=== PATIENT | male | born 1940 | race Caucasian/White ===

== ENCOUNTER 2016-09-04 04:51 | Inpatient (IN) | payer BC, MEDICARE ==
--- NOTE | ~2016-09-04 | DS ---
Discharge Summary [address] [id number] [facility] [place]. [address] NAME: PEG REINOSO : 39 STATUS : DIS IN PAT#: [id number] AGE: 76 ADM/REG DATE : 09/04/16 MR#: [id number] REPORT SERV DATE: 09/17/16 DICTATED BY: ARTHUR DONG DATE: 09/16/16 REPORT STATUS : Draft TRANSCRIBED BY: JODI DATE: 09/16/16 Data Collection from hospitalization DISCHARGE DIAGNOSES: 1. Sfh-WC-ldbbxvsgu myocardial infarction. 2. Ischemic cardiomyopathy. 3. Type 2 diabetes mellitus. 4. Acute kidney injury/chronic kidney disease. 5. Obstructive sleep apnea. 6. Transient ischemic attack. 7. Hypercholesterolemia. 8. Hypertension. 9. Neurogenic bladder. 10.Morbid obesity. 11.Hypercholesterolemia. CONSULTATIONS: 1. Pola Taylor M.D. 2. ROCK Rebolledo. PROCEDURES PERFORMED: Myocardial perfusion imaging study on 09/07/2016. DISCHARGE MEDICATIONS: Tylenol caplet 1000 mg every four hours as needed, vitamin C 1000 mg every morning, aspirin 81 mg every morning, Tenormin 25 mg every morning, Lipitor 20 mg at bedtime, vitamin D3 of 2400 units every morning, Plavix 75 mg every morning, vitamin D 50,000 units every 14 days, Zetia 10 mg at bedtime, Uloric 40 mg every morning, Tricor 145 mg every morning, Lasix 20 mg as instructed, NovoLog injection insulin 70/30 of 20 units subcutaneously every morning and 35 units subcutaneously at bedtime, Combivent one puff via inhaler four times a day as needed, Imdur 30 mg every morning, nitroglycerin 0.4 mg sublingually as needed, Nitro-Dur one patch topically daily, vitamin E 400 units every morning, Bonestine 1 tablet daily, [place] Q Plus two capsules every morning, montez fruit extract 3000 mg twice a day, Nattokinase 100 mg every morning, salmon oil 3 capsules 3 times a day, niacin 1 tablet three times a day, stool softener one capsule every morning, and antifungal cream one application topically every 48 hours. CONDITION AT DISCHARGE: Stable. DISPOSITION: The patient was discharged home on an 1800-calorie low-cholesterol, low-sodium, cardiac/diabetic diet with no concentrated carbohydrates and activities as instructed. He will follow up with Dr. Rober Krause 2 weeks following discharge in his [place] office and will follow up with Dr. Lizette Posey on 09/24/2016. He was to call the office of his primary care provider for a followup appointment as needed. HOSPITAL COURSE: This is a 76-year-old man who is followed by Dr. Jay and is known to me from a long history of prior care and has a history of coronary artery disease with surgical revascularization and subsequent percutaneous coronary interventions. He also has ischemic cardiomyopathy February 2016, left ventricular ejection fraction of 40%. 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 [address] NAME: PEG REINOSO : 39 STATUS : DIS IN PAT#: [id number] AGE: 76 ADM/REG DATE : 09/04/16 MR#: [id number] REPORT SERV DATE: 09/17/16 DICTATED BY: ARTHUR DONG DATE: 09/16/16 REPORT STATUS : Draft TRANSCRIBED BY: JODI DATE: 09/16/16 disease, remote, GONZALO stent, and recent TIA requiring hospitalization first at [facility], was transfers at [place] for evaluation there. He was found to have right internal carotid artery stent and subsequent diagnosis of hemodynamics TIA. He also has a history of sleep apnea, hypertension, neurogenic bladder. He had been discharged from [place] on the day prior to this admission, and belatedly reported an episode of exertional chest pain while undergoing physical therapy. He told this to the physical therapist, but somehow the communication was lost. On the way home in his automobile while riding, he developed chest pains, but this subsided spontaneously within 15 minute. Upon climbing 3 stairs to his home, he developed recurrent chest pain which was only partially responsive to self administration of nitroglycerin. EMS was called and more nitroglycerin and other medications were administered. Blood pressure was 160 systolic. He did receive clonidine. He presented to the emergency room at [facility] where he was pain free. An EKG was nondiagnostic. Troponin was positive. He was transferred to [facility], and has remained pain-free here. He was felt to have had a oqk-YE-xjjqimzph myocardial infarction. It was unclear whether this was precipitated by hypertension. His troponin was found to be 15.8. DAPT was continued. Heparin was added. It was felt that he would need to undergo myocardial perfusion imaging or cardiac catheterization. He was seen by Dr. Pola Taylor regarding management of diabetes. The patient was going to be continued on his 70/30 insulin. As per his home regimen, sliding scale insulin would be used. His other home medications would be continued. An echocardiogram was performed the following day. His shortness of breath was stable. Levemir and NovoLog were continued. Urinalysis was going to be checked. He was encouraged to use CPAP. Altace was stopped. Catapres was held. He had no chest pain. His speech was a bit slurred. Left ventricular ejection fraction was 35%. Catapres was held as well as MAYTE inhibitor. He was seen by Evelyn Rivero regarding acute kidney injury. His baseline creatinine is 1.6 to 1.9. Creatinine had jumped to 2.3. Blood pressures were still dropping. Clonidine had been discontinued. A Ulloa catheter was then placed with excellent urine output. Troponin level was now 8.25. Creatinine level was 2.37. He was felt to have acute kidney injury on chronic kidney disease in the setting of low blood pressure and ftl-LJ-mhkceckmm myocardial infarction. It was suspected that creatinine was up in the setting of his low blood pressure. MAYTE inhibitor and clonidine has been held. He had excellent urine output. Ulloa catheter remained in place. He wanted to see the patient's creatinine below 2 before any contrast studies. On the , he seemed to be feeling better. He had no shortness of breath or chest pain. Creatinine level was 2.81. Lasix was held. He had no chest pain. He was in a sinus rhythm. A myocardial perfusion imaging study was going to be performed. The next day, creatinine level decreased slightly to 2.65. He had a normal respiratory effort. He had good pain control. Myocardial perfusion imaging study was performed. Levemir was adjusted. Imaging demonstrated ischemia. Post infusion left ventricular ejection fraction was 35%. On 09/08/2016, his shortness of breath was at baseline. He had no chest pain. He was in a sinus rhythm. Medical therapy continued for now. Crestor was going to be started. Creatinine level was now 2.32. It was felt that he should not undergo coronary angiogram until creatinine level was less than 2. He was evaluated by Physical Therapy. He had no new complaints. Medical therapy continued and LifeVest was going to be placed. Discharge planning was performed. Blood sugars remained stable. He had good urine output. On 09/10/2016, he was ambulating without chest pain. He remained in a sinus rhythm. DAPT continued. Life Vest was in place. He was going to go home. Creatinine was 2.39. Discharge Summary [address] [address] NAME: PEG REINOSO : 39 STATUS : DIS IN PAT#: [id number] AGE: 76 ADM/REG DATE : 09/04/16 MR#: [id number] REPORT SERV DATE: 09/17/16 DICTATED BY: ARTHUR DONG DATE: 09/16/16 REPORT STATUS : Draft TRANSCRIBED BY: MODL DATE: 09/16/16 Discharge instructions were given. Due to his improved and stable condition, he was discharged home with the above-stated instructions. Information collected by: Elena Bunch I submit the above information as my discharge summary. GLENDA/JODI Arthur Dong M.D. / [id number] CC: Tay Diaz M.D. Jessica Craig, FNP
--- NOTE | ~2016-09-04 | HP ---
History And Physical [id number] [place]. [address] NAME: PEG REINOSO : 39 STATUS : ADM IN [facility]#: [id number] AGE: 76 ADM/REG DATE : 09/04/16 MR#: [id number] REPORT SERV DATE: 09/04/16 DICTATED BY: NOAM DONG DATE: 09/04/16 REPORT STATUS : Draft TRANSCRIBED BY: MODAlicia DATE: 09/04/16 DATE OF ADMISSION: 09/04/2016 CHIEF COMPLAINT: Chest pain. HISTORY OF PRESENT ILLNESS: A 76-year-old man, followed by Dr. Jay, known to me from long history of prior care, has history of coronary artery disease with surgical revascularization, 06/16 and subsequent PCIs, ischemic cardiomyopathy with 02/24, LVEF 40%, chronic kidney disease, class 3-4, insulin-requiring diabetes, hypercholesteremia, carotid disease with remote GONZALO stent and recent TIA requiring hospitalization at first to [facility] with transfer to [place] with evaluation there, demonstrating patent GONZALO stent and subsequent diagnosis of hemodynamic TIA. The patient also has a relevant history of sleep apnea, hypertension, neurogenic bladder. He was discharged from [place] yesterday afternoon and belatedly reports an episode of exertional chest pain while undergoing physical therapy. He told this to the physical therapist, but apparently this was not communicated or somehow was lost. On the way home in automobile while riding, he had chest pain. This subsided spontaneously within 15 minutes. Upon ascending 3 steps to his home, he had recurrent chest pain, which was only partially responsive to self administration of nitroglycerin. EMS was summoned and more nitroglycerin and other medications were administered. Blood pressure was 160 systolic. He received clonidine. Chest pain finally subsided. He presented to the emergency room at [facility], where he was pain-free. An EKG was nondiagnostic. Troponin was positive. He has been received and transfer to [facility] and has remained pain-free here. PAST MEDICAL HISTORY: 1. CAD-06/16, CABG with MOYER to LAD, SVG to diagonal with endarterectomy, SVG sequentially to proximal and then distal obtuse marginal vessel; 07/21 cath with occluded CABG to OM, 80% AV groove circumflex with distal RCA 90% stenosis, then treated with 2.5 x 12 Xience; 07/21, 2.25 x 16 MACARIO to mid ramus, and 2.5 x 28 Xience to proximal ramus, 3.0 x 15 Xience to AV groove circumflex, and 2.5 x 8 Xience to ostium of ramus; 09/20, angina with balloon PCI of ostial ramus intermedius vessel stenosis and ostial AV groove circumflex 2.5 x 20 PROMUS; 10/21 balloon PCI of right posterior descending stenosis (could not deliver stent); 09/22 proximal AV groove circumflex 90%, treated with 3.5 x 8 Xience and occluded SVG x2; ischemic cardiomyopathy-10/25 LVEF 30% with LifeVest placed then and optimization of medical therapy with 02/24, echocardiogram estimating LVEF 40%. 2. CKD-class 3-4. 3. Type 2 but insulin-requiring diabetes. 4. Hypercholesterolemia. 5. Morbid obesity. 6. Hypertension. 7. Sleep apnea. 8. Carotid disease-11/20, GONZALO asymptomatic critical stenosis treated with 8 x 30 Xact stent; 09/24 duplex with patent GONZALO stent; admission to [facility] 08/28 with dysarthria and possibly anomia, an MRA suggestion of in-stent restenoses; transfer to [place], History And Physical [address] [address] NAME: PEG REINOSO : 39 STATUS : ADM IN [facility]#: [id number] AGE: 76 ADM/REG DATE : 09/04/16 MR#: [id number] REPORT SERV DATE: 09/04/16 DICTATED BY: NOAM DONG DATE: 09/04/16 REPORT STATUS : Draft TRANSCRIBED BY: MODAlicia DATE: 09/04/16 where duplex demonstrates widely patent GONZALO stent and MRI/MRA, no critical intracranial cerebral stenoses. 9. Neurogenic bladder. MEDICATIONS: Acetaminophen 1 g q.4 hours p.r.n., vitamin C 500 mg daily, aspirin 81 mg daily, atenolol 50 mg daily, cholecalciferol 2400 units daily, clonidine 0.1 mg b.i.d., Plavix 75 mg daily, vitamin D 17571 units every other Wednesday, Zetia 10 mg daily, Uloric 40 mg daily, fenofibrate 145 mg daily, Lasix 20 mg daily, gabapentin 100 mg daily, hydralazine 50 mg t.i.d., insulin corrected dosing, ipratropium/albuterol, isosorbide mononitrate 30 mg daily, nitroglycerin 0.4 mg sublingual p.r.n., Nitro-Dur 0.4 mg/h daily, ramipril 10 mg daily, vitamin E 400 units daily, [place] plus montez fruit extract, antifungal creams. ALLERGIES: SULFA. SOCIAL HISTORY: The patient is a [place] of [place]. He has been in this area for some time. He is . He does not smoke. FAMILY HISTORY: Noncontributory. REVIEW OF SYSTEMS: Neurogenic bladder and peripheral neuropathy with impaired gait. PHYSICAL EXAMINATION: GENERAL: No acute distress. VITAL SIGNS: Blood pressure 141/65, respirations 18, temperature 96.9, pulse 61 and regular. NECK: Bilateral carotid bruits, no JVD. LUNGS: Clear. CARDIAC: II/ systolic murmur, no diastolic murmur, no gallop. ABDOMEN: Obese. EXTREMITIES: +1/4 bilateral pretibial pitting edema. Right and left femoral pulses +2. DATA: BUN and creatinine 50 and 1.95 yielding EGFR 37. White blood cell count 4700, hematocrit 38.8%, platelet count 137,000. Troponin I 15.8. EKG sinus rhythm at a rate of 63, first-degree AV block, left bundle branch block (trifascicular block.) ASSESSMENT AND PLAN: 1. Nlu-JL-vfumafwiw myocardial infarction-unclear whether this was precipitated by hypertension, which was recommended and mandated by neurologists to improve cerebral perfusion (theoretically). Alternatively, this may represent unstable coronary lesion. The patient is now pain-free. We will continue DAPT. We will add heparin. We will observe over weekend and decide whether risk stratification with myocardial perfusion imaging or cardiac catheterization will be optimal. Contrast administration is problematic for this patient. History And Physical [address] [place]. [address] NAME: PEG REINOSO : 39 STATUS : ADM IN [facility]#: [id number] AGE: 76 ADM/REG DATE : 09/04/16 MR#: [id number] REPORT SERV DATE: 09/04/16 DICTATED BY: NOAM DONG DATE: 09/04/16 REPORT STATUS : Draft TRANSCRIBED BY: MODL DATE: 09/04/16 2. Ischemic cardiomyopathy-obtain echocardiogram today. Continue current therapy with blood pressure target of 120. 3. Diabetes mellitus 2-consult hospitalist. 4. Chronic kidney disease-now class 3. 5. Obesity. 6. Sleep apnea. 7. Transient ischemic attack. 8. Carotid disease-remote GONZALO stent which is widely patent by duplex. /MODL Noam Dong M.D. / [id number] CC: Tay Diaz M.D.
--- NOTE | ~2016-09-04 | CN ---
Consultation Report [facility] [address] [place]. [address] NAME: PEG REINOSO : 39 STATUS : ADM IN [facility]#: [id number] AGE: 76 ADM/REG DATE : 09/04/16 MR#: [id number] REPORT SERV DATE: 09/07/16 DICTATED BY: POLA TAYLOR DATE: 09/04/16 REPORT STATUS : Draft TRANSCRIBED BY: MODAlicia DATE: 09/04/16 CONSULTATION DATE OF CONSULTATION: REASON FOR CONSULTATION: Management of diabetes. BRIEF HISTORY OF PRESENT ILLNESS: The patient is a 76-year-old white male, recently discharged from under my service to [facility] for evaluation and management of what appeared to be a critical stenosis. This patient was at [facility] and discharged yesterday. When he got home, he was having some chest pain. He took one nitroglycerin that seemed to subside. Then, he had to take three nitros, pain did not go away. He became very diaphoretic. He had some nausea. So, activated EMS. He was brought to [facility]. He was noted to have an elevated troponin. So, he has been transferred here for further care under Dr. Dong, who is his primary applications analyst. I was asked to see the patient in consultation for management of his diabetes. This patient reports no chest pain at this time. REVIEW OF SYSTEMS: A 12-point review of systems otherwise was negative. PAST MEDICAL HISTORY: Coronary artery disease, status post stent placement with Dr. Dong; history of CABG in 2006; subsequent heart catheterization showed an occluded vein graft; carotid artery disease with a stent placement approximately three years ago with recent evaluation at [place] showing no further carotid artery occlusions. Systolic congestive heart failure with an ejection fraction of 30% in October 2015; obstructive sleep apnea, on CPAP. Chronic kidney disease stage 3 to 4, follow by Dr. Ted Stiles. He has chronic left bundle-branch block. He has neurogenic bladder with self catheterization three times daily, followed by Dr. Vanessa. He has hypertension. He has type 2 diabetes mellitus with neuropathy. He has hyperlipidemia. He is vitamin D deficiency. PAST SURGICAL HISTORY: Significant for CABG in 2006, left hip surgery, lumbar spine surgery, right finger surgery. ALLERGIES: TO SULFA DRUGS. HOME MEDICATIONS: Tylenol 100 mg every four hours p.r.n., vitamin C 1000 mg p.o. daily, aspirin 81 mg once daily, Tenormin 50 mg once daily, vitamin D3 2400 units once every morning, Catapres 0.1 mg twice daily, Plavix 75 mg once every morning, vitamin D 5000 units once every 14 days, Zetia 10 mg once at bedtime, Uloric 40 mg p.o. every morning, TriCor 145 mg p.o. every morning, Lasix 20 mg once every morning, gabapentin 100 mg daily, hydralazine 50 mg three times daily, NovoLog 70/30, FlexPen 20 units subcu in the morning and 40 units subcu at bedtime, Combivent Respimat 1 puff four times daily p.r.n., isosorbide 30 mg once every morning, NitroQuick 0.4 sublingual p.r.n. for chest pain, and Nitro-Dur patch 0.4 mg Consultation Report [address] [address] NAME: PEG REINOSO : 39 STATUS : ADM IN PAT#: [id number] AGE: 76 ADM/REG DATE : 09/04/16 MR#: [id number] REPORT SERV DATE: 09/07/16 DICTATED BY: POLA TAYLOR DATE: 09/04/16 REPORT STATUS : Draft TRANSCRIBED BY: JDOI DATE: 09/04/16 per hour once daily, ramipril 10 mg every morning, vitamin E 400 mg p.o. every morning, Bonestine one tablet p.o. daily, [place] Q Plus two caplets p.o. daily, montez fruit extract, nattokinase 100 mg p.o. once every morning taking full of blood clots, [place] oil, niacin, stool softener, and antifungal cream for toenail fungus. SOCIAL HISTORY: This patient quit smoking 40 years ago. No use of alcohol. He is , lives with his in [place], [place]. He ambulates using a walker. FAMILY HISTORY: Mother at 62 of age, complications of congestive heart failure and diabetes. Two brothers with heart disease. PHYSICAL EXAMINATION: GENERAL: White male, lying on the bed, appears to be in no obvious respiratory distress. He is awake, alert. He is oriented. VITAL SIGNS: Blood pressure 143/66, pulse is 63, temp is 97.0, saturation of 99% on 2 L of nasal cannula. HEENT: Head is normocephalic, atraumatic. Pupils are equal, round, and reactive to light. Extraocular muscles are intact. Sclerae anicteric. Conjunctivae normal. Oropharynx without lesion. Tongue protrusion midline. Uvula midline. NECK: Supple. No jugular venous distention. No carotid bruits or thyromegaly is appreciated. No lymphadenopathy in the neck is palpable. HEART: Regular rate and rhythm. No murmurs, rubs, or gallops are heard. PMI nondisplaced. LUNGS: Clear to auscultation both anteriorly and posteriorly without rales, rhonchi, wheezing, or consolidation. ABDOMEN: Obese, soft, nontender. Good bowel sounds. No rebound or guarding. No organomegaly. EXTREMITIES: Without cyanosis or clubbing. Trace edema in the ankle areas is noted. NEUROLOGICAL: Typical sensory neuronal loss is noted from diabetic neuropathy in both lower extremities. Otherwise neurological exam is completely normal. LABS: Sodium 138, potassium 4.0, chloride 104, bicarb 24, BUN 50, creatinine 1.95, glucose of 152, calcium is 9.6. Troponin is 15.80, a one this morning is 14.6. White count is 4.7, hemoglobin 13.3, hematocrit of 38.8, platelet count is 137,000. No left shift. PT 15, INR 1.4, PTT 58. Two-dimensional echocardiogram, pending. EKG, sinus rhythm with first-degree AV block. Left axis deviation and left bundle-branch block. No acute ST-T wave changes. IMPRESSION: 1. Type 2 diabetes mellitus. 2. History of coronary artery disease, now presenting with non ST-elevation myocardial infarction. 3. Peripheral arterial disease with a prior carotid stent with recent carotid evaluation being negative. 4. Obstructive sleep apnea. 5. Systolic heart failure. 6. Chronic kidney disease stage 3 to 4. Consultation Report [address] [place]. [address] NAME: PEG REINOSO : 39 STATUS : ADM IN [facility]#: [id number] AGE: 76 ADM/REG DATE : 09/04/16 MR#: [id number] REPORT SERV DATE: 09/07/16 DICTATED BY: POLA TAYLOR DATE: 09/04/16 REPORT STATUS : Draft TRANSCRIBED BY: JDOI DATE: 09/04/16 7. Diabetic neuropathy. PLAN: The patient will be continued on his 70/30 insulin per home regimen. Sliding scale will be used. Continue other home medications. Cardiac management will be deferred to Dr. Dong. Hospitalist Service will follow. We thank you for this consultation. GERRI/JODI Pola Taylor M.D. / [id number] CC: Tay Diaz M.D.
--- NOTE | ~2016-09-04 | ECH ---
Echocardiogram [address] [place]. [address] NAME: PEG REINOSO : 39 STATUS : ADM IN PAT#: [id number] AGE: 76 ADM/REG DATE : 09/04/16 MR#: [id number] REPORT SERV DATE: 09/07/16 DICTATED BY: ARTHUR DONG DATE: 09/04/16 REPORT STATUS : Draft TRANSCRIBED BY: MODL DATE: 09/04/16 ORDERING: Arthur Dong M.D. INDICATIONS: Evaluation of LVEF after a non-ST elevation ME. STUDY QUALITY: Fair. MEASUREMENTS (in cm) Aortic Root = 2.9. Septal Wall = Posterior Wall = LV Diastolic = LV Systolic = Left Atrium = IVS: 1.2. LV POSTERIOR WALL: 1.2. LVIDD: 5.9. LVIDS: 4.9. LA: 4.4. LVEF: By Lawson's method 35% (may differ from visual estimation of LVEF). 2D DOPPLER: 1. Aortic Valve: Trileaflet with normal excursion. 2. Aortic Root: Normal. 3. Mitral Valve: Morphologically normal without prolapse. 4. Tricuspid Valve: Morphologically normal without prolapse. 5. Pulmonic Valve: Grossly normal. 6. Left Ventricle: Global hypocontractility with disproportionate posterolateral wall hypokinesis. Ejection fraction is estimated to be in the range of 30% to 35%. 7. Right Ventricle: Normal. 8. Pericardial Space: Trace pericardial fluid identified . 9. Intracardiac Masses: None. 10.Other: None. FINAL IMPRESSION: 1. Mild concentric left ventricular hypertrophy. 2. Minimally dilated left ventricular at end diastole. 3. Moderately dilated left ventricular at end systole. 4. Mildly decreased left ventricular ejection fraction estimated 30% to 35% with segmental wall motion abnormalities described. 5. Trace pericardial fluid without tamponade physiology. 6. Limited study and valvular function not evaluated. Echocardiogram [address] [place]. [address] NAME: PEG REINOSO : 39 STATUS : ADM IN PAT#: [id number] AGE: 76 ADM/REG DATE : 09/04/16 MR#: [id number] REPORT SERV DATE: 09/07/16 DICTATED BY: ARTHUR DONG DATE: 09/04/16 REPORT STATUS : Draft TRANSCRIBED BY: MODL DATE: 09/04/16 /MODL Arthur Dong M.D. / [id number] CC: Tay Diaz M.D.
--- NOTE | ~2016-09-04 | CN ---
Consultation Report [facility] [address] [place]. [address] NAME: PEG MEADOWS : 38 STATUS : ADM IN [facility]#: [id number] AGE: 76 ADM/REG DATE : 09/04/16 MR#: [id number] REPORT SERV DATE: 09/06/16 DICTATED BY: DATE: REPORT STATUS : Draft TRANSCRIBED BY: MODL DATE: 09/05/16 CONSULTATION REPORT DATE OF CONSULTATION: REASON FOR CONSULTATION: Acute kidney injury. HISTORY OF PRESENT ILLNESS: Mr. 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 Stiles. As best I can tell from [facility] records, his baseline creatinine is 1.6 to 1.9. Apparently, he was in the hospital a week or so ago with TIA, transferred from [facility] to [place]. He had significant high blood pressure and medicines were adjusted. He was doing some physical therapy, developed chest pain, and brought to the emergency department. He has had a [id number] ND with significant troponin elevation. Since he has been here, had blood pressures in the 70 to 90 range, creatinine has bumped up to 2.3, and we have been asked to see him in consultation as there is consideration for possible heart catheterization early next week as well. He is currently still experiencing some shortness of breath. Blood pressures are still dropping. He is having some dysarthria here in there, and the states that this is not unusual when he takes clonidine, this was just discontinued. His last dose of Altace was yesterday as well as clonidine. Current blood pressure is at 105. Denies any dysuria or hematuria. He has a Ulloa catheter in place with excellent urine output. PAST MEDICAL HISTORY: CKD, stage III to IV; diabetes with neuropathy; neurogenic bladder; diabetes; hyperlipidemia; coronary artery disease, status post PCI and bypass. He has also had a right carotid endarterectomy, TIA recently, obstructive sleep apnea, and hypertension. SOCIAL HISTORY: He is . No tobacco, alcohol, or illicit drug use. FAMILY MEDICAL HISTORY: Negative for kidney disease. ALLERGIES: SULFA. MEDICATIONS: At the time of consultation; vitamin C, aspirin, Tenormin, Imdur, Neurontin, Lasix, Uloric, Zetia, and Plavix. REVIEW OF SYSTEMS: A 12-point review of systems was obtained and negative with the exception of that in the HPI. PHYSICAL EXAMINATION: VITAL SIGNS: Temp 97, blood pressure is 103/51, pulse 57, respiratory rate 16, and O2 saturation is 95%. GENERAL: This is a pleasant, cooperative white male. He is awake, alert, and oriented. Speech is a bit slurred. Consultation Report [address] [place]. [address] NAME: PEG MEADOWS : 38 STATUS : ADM IN PAT#: [id number] AGE: 76 ADM/REG DATE : 09/04/16 MR#: [id number] REPORT SERV DATE: 09/06/16 DICTATED BY: DATE: REPORT STATUS : Draft TRANSCRIBED BY: JODI DATE: 09/05/16 HEENT: Normocephalic and atraumatic. Conjunctivae are clear. Sclerae are anicteric. Pupils are equal and round. Oral mucosa is moist. NECK: Supple and with carotid bruits bilaterally. HEART: His heart rate is regular. Heart tones are very distant, hard for me to here. I really cannot hear any murmur, rub, or gallop. ABDOMEN: Obese, soft, and nontender. Bowel sounds are active. No masses. No hepatosplenomegaly. No bruits. No CVA tenderness. BACK: Within normal limits. EXTREMITIES: Without any significant edema, cyanosis, or clubbing. SKIN: Warm, dry, and intact. No unusual rashes or skin lesions. NEURO: No focal deficits. Mood and affect, pleasant and appropriate. PERTINENT LABS AND X-RAYS: He had a UA without any significant protein or blood. Sodium 136, potassium 4.5, chloride 101, CO2 of 20, BUN 52, creatinine 2.37, calcium 8.8, phosphorus 3.9, and albumin of 3.2. Troponin is 8.25. WBC is 4.9, H and H 12 and 36, and platelets 138,000. IMPRESSION: 1. Acute kidney injury. 2. Chronic kidney disease, stage III to IV. 3. Lgq-HB-gisoqjaoe myocardial infarction. 4. Hypotension. 5. Recent transient ischemic attack. 6. Ischemic cardiomyopathy with ejection fraction of 35%. 7. Neurogenic bladder with Ulloa in place. PLAN/RECOMMENDATION: Acute kidney injury on CKD in setting of low blood pressure, non-ST- elevation ND. Suspect creatinine is up in the setting of his low blood pressure. MAYTE inhibitor and clonidine have already been held. He has excellent urine output. He has a Ulloa catheter in place. We will follow up on labs, I's and O's, and follow along with you. I would like to see his creatinine below 2 before any contrasted studies. Thank you for the consultation. VALENTINA ROCK Rebolledo / [id number] CC: Arthur Dong M.D. Consultation Report [address] [place]. [address] NAME: PEG MEADOWS : 38 STATUS : ADM IN PAT#: [id number] AGE: 76 ADM/REG DATE : 09/04/16 MR#: [id number] REPORT SERV DATE: 09/06/16 DICTATED BY: DATE: REPORT STATUS : Draft TRANSCRIBED BY: JODI DATE: 09/05/16 Barrett Jay M.D.
[~2016-09-04 04:51] MED LIST: ACET500CAP PO; ALTA5 PO; ALTACE10 MG PO; ANTIFUNGAL CREAM TOP; APRES25 PO; APRES50 PO; AQUASOL E50 UNT/ML PO; ASA5GR PO; ASAB PO; ATEN25 PO; ATEN50 PO; AVODART PO; B-125000 MCG SL; CAT1 PO; CHERRY FRUIT EXTRACT PO; CINNAMON PO; COMBIVENT RESPIM4 GM INH; CRESTOR40 MG PO; FISH-EPA1000 MG PO; IMDUR30 PO; INSNOV7030 SC; KLOR-CON M2020 MEQ PO; L20 PO; L40 PO; MULTIVITAMI1 PO; NAC 600 PO; NAC PO; NATTOKINASE PO; NEUR100 PO; NIACIN PO; NITROII20C TOP; NITROQUICK0.4 MG PO; NITROSTAT0.4 MG SL; NOVOLOGMIX SC; NOVOPENMIX SC; OMEGA Q PLUS PO; PLAVIX PO; SALMON OIL PO; STOOL SOFTENER PO; T PO; TRICOR145 PO; ULORIC40 MG PO; VITAMIN C100 MG PO; VITAMIN D2000 UNIT PO; VITAMIN D31000 UNIT PO; VITC500 PO; VITD PO; VITE PO; ZETIA PO; [UNRECOGNIZED DRUG - OTHER] PO
[2016-09-04 06:12] LABS: BASOPHILS 1.1 %; BASOPHILS ABSOLUTE 0.05 10/3/uL (0.0-0.16); EOSINOPHILS 6.2 %; EOSINOPHILS ABSOLUTE 0.29 10/3/uL (0.0-0.53); HEMATOCRIT 38.8 % (40.0-51.0); HEMOGLOBIN 13.3 g/dL (13.6-17.8); LYMPHOCYTES 29.7 %; LYMPHOCYTES ABSOLUTE 1.38 10/3/uL (0.67-4.30); MEAN CORPUS HGB CONC 34.3 g/dL (32.0-36.0); MEAN CORPUSCULAR HEMOGLOB 32.3 pg (26.0-34.0); MEAN CORPUSCULAR VOLUME 94.2 fL (80-100); MEAN PLATELET VOLUME 9.5 fL (9.2-13.0); MONOCYTES 10.5 %; MONOCYTES ABSOLUTE 0.49 10/3/uL (0.21-1.20); NEUTROPHILS 52.5 %; NEUTROPHILS ABSOLUTE 2.44 10/3/uL (2.02-8.40); PLATELET COUNT 137 10/3/uL (150-400); RED CELL COUNT 4.12 10/6/uL (4.7-6.1); WHITE BLOOD CELLS 4.7 10/3/uL (4.5-10.5)
[2016-09-04 06:13] LABS: MANUAL DIFF NO %
[2016-09-04 06:18] LABS: INTERNATIONAL NORMAL RATI 1.2 UNITS (-)
[2016-09-04 06:19] LABS: PARTIAL THROMBO TIME 58.6 SEC (22.5-37.2)
[2016-09-04 06:41] LABS: CALCIUM, SERUM 9.6 MG/DL (8.5-10.4); CHLORIDE, SERUM 104 MMOL/L (96-112); CO2 (CARBON DIOXIDE) 24 MMOL/L (24-34); CREATININE 1.95 MG/DL (0.70-1.30); GFR AFRICAN AMERICAN 37 ML/MIN (>=60); GFR NON AFRICAN AMERICAN 32 ML/MIN (>=60); SODIUM, SERUM 138 MMOL/L (135-148)
[2016-09-04 06:42] LABS: BUN (BLOOD UREA NITROGEN) 50 MG/DL (6-23); GLUCOSE, SERUM 152 MG/DL (60-99)
[2016-09-05 00:28] LABS: BASOPHILS ABSOLUTE 0.05 10/3/uL (0.0-0.16); EOSINOPHILS 6.1 %; HEMATOCRIT 36.3 % (40.0-51.0); HEMOGLOBIN 12.6 g/dL (13.6-17.8); IMMATURE GRANULOCYTES 0.4 %; IMMATURE GRANULOCYTES ABSOLUTE 0.02 10/3/uL (0.0-0.11); LYMPHOCYTES 21.3 %; LYMPHOCYTES ABSOLUTE 1.04 10/3/uL (0.67-4.30); MEAN CORPUS HGB CONC 34.7 g/dL (32.0-36.0); MONOCYTES 14.8 %; MONOCYTES ABSOLUTE 0.72 10/3/uL (0.21-1.20); NEUTROPHILS 56.4 %; NEUTROPHILS ABSOLUTE 2.75 10/3/uL (2.02-8.40); PLATELET COUNT 138 10/3/uL (150-400); RBC DISTRIBUTION WIDTH 14.1 % (12.0-16.0); RED CELL COUNT 3.82 10/6/uL (4.7-6.1); WHITE BLOOD CELLS 4.9 10/3/uL (4.5-10.5)
[2016-09-05 00:32] LABS: MANUAL DIFF NO %
[2016-09-05 00:44] LABS: ALBUMIN 3.2 G/DL (3.5-5.0); BUN (BLOOD UREA NITROGEN) 52 MG/DL (6-23); CALCIUM, SERUM 8.8 MG/DL (8.5-10.4); CHLORIDE, SERUM 101 MMOL/L (96-112); CO2 (CARBON DIOXIDE) 22 MMOL/L (24-34); CREATININE 2.37 MG/DL (0.70-1.30); GFR AFRICAN AMERICAN 30 ML/MIN (>=60); GFR NON AFRICAN AMERICAN 25 ML/MIN (>=60); GLUCOSE, SERUM 180 MG/DL (60-99); PHOSPHORUS, SERUM 3.8 MG/DL (2.5-4.5); POTASSIUM, SERUM 4.5 MMOL/L (3.5-5.3); SODIUM, SERUM 136 MMOL/L (135-148)
[2016-09-05 00:46] LABS: TROPONIN I 8.25 NG/ML (<0.05)
[2016-09-05 15:38] LABS: ASCORBIC ACID (UR NOT ORDER) 40 (NEG); BILIRUBIN, URINE NEGATIVE (NEG); KETONE, URINE NEGATIVE (NEG); LEUKOCYTE ESTERASE(NOT OR TRACE (NEG); WBC (NOT ORDERED) (RFLEX) 2 (0-5)
[2016-09-06 02:28] LABS: BASOPHILS 0.7 %; BASOPHILS ABSOLUTE 0.03 10/3/uL (0.0-0.16); EOSINOPHILS 7.2 %; EOSINOPHILS ABSOLUTE 0.31 10/3/uL (0.0-0.53); HEMATOCRIT 36.5 % (40.0-51.0); HEMOGLOBIN 12.6 g/dL (13.6-17.8); IMMATURE GRANULOCYTES 0.2 %; IMMATURE GRANULOCYTES ABSOLUTE 0.01 10/3/uL (0.0-0.11); LYMPHOCYTES 25.2 %; LYMPHOCYTES ABSOLUTE 1.09 10/3/uL (0.67-4.30); MEAN CORPUS HGB CONC 34.5 g/dL (32.0-36.0); MEAN CORPUSCULAR HEMOGLOB 32.6 pg (26.0-34.0); MEAN CORPUSCULAR VOLUME 94.6 fL (80-100); MEAN PLATELET VOLUME 9.3 fL (9.2-13.0); MONOCYTES 17.6 %; MONOCYTES ABSOLUTE 0.76 10/3/uL (0.21-1.20); NEUTROPHILS 49.1 %; NEUTROPHILS ABSOLUTE 2.12 10/3/uL (2.02-8.40); PLATELET COUNT 135 10/3/uL (150-400); RBC DISTRIBUTION WIDTH 14.2 % (12.0-16.0); RED CELL COUNT 3.86 10/6/uL (4.7-6.1); WHITE BLOOD CELLS 4.3 10/3/uL (4.5-10.5)
[2016-09-06 02:37] LABS: MANUAL DIFF NO %
[2016-09-06 02:52] LABS: A/G RATIO 0.9 (0.7-1.9); ALBUMIN 3.2 G/DL (3.5-5.0); CALCIUM, SERUM 8.9 MG/DL (8.5-10.4); CHLORIDE, SERUM 101 MMOL/L (96-112); CO2 (CARBON DIOXIDE) 22 MMOL/L (24-34); CREATININE 2.81 MG/DL (0.70-1.30); GFR AFRICAN AMERICAN 24 ML/MIN (>=60); GFR NON AFRICAN AMERICAN 21 ML/MIN (>=60); GLOBULIN 3.4 G/DL (2.5-4.1); POTASSIUM, SERUM 4.8 MMOL/L (3.5-5.3); SGOT(AST) 33 U/L (5-40); SGPT(ALT) 25 U/L (5-65); SODIUM, SERUM 133 MMOL/L (135-148); TOTAL BILIRUBIN 0.3 MG/DL (0-1.2); TOTAL PROTEIN 6.6 G/DL (6.0-8.5)
[2016-09-06 02:53] LABS: ALKALINE PHOSPHATASE 44 U/L (45-117); BUN (BLOOD UREA NITROGEN) 60 MG/DL (6-23); GLUCOSE, SERUM 139 MG/DL (60-99); PHOSPHORUS, SERUM 4.9 MG/DL (2.5-4.5)
[2016-09-07 04:00] LABS: ALBUMIN 3.5 G/DL (3.5-5.0); BUN (BLOOD UREA NITROGEN) 62 MG/DL (6-23); CALCIUM, SERUM 9.6 MG/DL (8.5-10.4); CHLORIDE, SERUM 103 MMOL/L (96-112); CO2 (CARBON DIOXIDE) 23 MMOL/L (24-34); CREATININE 2.65 MG/DL (0.70-1.30); GFR AFRICAN AMERICAN 26 ML/MIN (>=60); GFR NON AFRICAN AMERICAN 22 ML/MIN (>=60); GLUCOSE, SERUM 141 MG/DL (60-99); PHOSPHORUS, SERUM 4.3 MG/DL (2.5-4.5); SODIUM, SERUM 136 MMOL/L (135-148)
[2016-09-07 04:01] LABS: TROPONIN I 1.87 NG/ML (<0.05)
[2016-09-08 08:27] LABS: ALBUMIN 3.3 G/DL (3.5-5.0); BUN (BLOOD UREA NITROGEN) 53 MG/DL (6-23); CALCIUM, SERUM 9.3 MG/DL (8.5-10.4); CHLORIDE, SERUM 104 MMOL/L (96-112); CO2 (CARBON DIOXIDE) 24 MMOL/L (24-34); CREATININE 2.32 MG/DL (0.70-1.30); GFR AFRICAN AMERICAN 30 ML/MIN (>=60); GFR NON AFRICAN AMERICAN 26 ML/MIN (>=60); GLUCOSE, SERUM 141 MG/DL (60-99); SODIUM, SERUM 136 MMOL/L (135-148)
[2016-09-09 07:58] LABS: BUN (BLOOD UREA NITROGEN) 54 MG/DL (6-23); CALCIUM, SERUM 9.5 MG/DL (8.5-10.4); CHLORIDE, SERUM 102 MMOL/L (96-112); CO2 (CARBON DIOXIDE) 25 MMOL/L (24-34); CREATININE 2.37 MG/DL (0.70-1.30); GFR AFRICAN AMERICAN 30 ML/MIN (>=60); GFR NON AFRICAN AMERICAN 25 ML/MIN (>=60); GLUCOSE, SERUM 125 MG/DL (60-99); POTASSIUM, SERUM 5.4 MMOL/L (3.5-5.3); SODIUM, SERUM 138 MMOL/L (135-148)
[2016-09-10 05:31] LABS: BUN (BLOOD UREA NITROGEN) 51 MG/DL (6-23); CALCIUM, SERUM 9.5 MG/DL (8.5-10.4); CHLORIDE, SERUM 101 MMOL/L (96-112); CO2 (CARBON DIOXIDE) 24 MMOL/L (24-34); CREATININE 2.39 MG/DL (0.70-1.30); GFR AFRICAN AMERICAN 29 ML/MIN (>=60); GFR NON AFRICAN AMERICAN 25 ML/MIN (>=60); POTASSIUM, SERUM 5.1 MMOL/L (3.5-5.3); SODIUM, SERUM 138 MMOL/L (135-148)
[2016-09-10 05:34] LABS: GLUCOSE, SERUM 151 MG/DL (60-99)
[2016-09-10] MEDS ORDERED: NTG150 SL (10:15)
[2016-09-10] MEDS ORDERED: LIPITOR20 PO (10:18)
[2016-12-25] MEDS ORDERED: CAT1 PO (12:00)
[2016-12-25] MEDS ORDERED: SACU1TAB PO (12:00)
[2016-12-25] MEDS ORDERED: ATEN25 PO (12:09)
[2016-12-25] MEDS ORDERED: SACU1TAB7 PO (12:13)
[2016-12-25] MEDS ORDERED: VITAMIN D31000 UNIT PO (12:14)
[2016-12-25] MEDS ORDERED: VITC500 PO (12:15)
[2016-12-28] MEDS ORDERED: PCET PO (13:54)
== END 2016-09-10 17:26 | disposition home or self-care (01) | DRG 280 ==
LOC: 5NO 04:51
PROVIDERS: Hospitalist; Internal Medicine; Internal Medicine Cardiovascular Disease
DX: I21.4 Non-ST elevation (NSTEMI) myocardial infarction (principal); N17.0 Acute kidney failure with tubular necrosis; I50.22 Chronic systolic (congestive) heart failure; I13.0 Hypertensive heart and chronic kidney disease with heart failure and stage 1 through stage 4 chronic kidney disease, or unspecified chronic kidney disease; E11.22 Type 2 diabetes mellitus with diabetic chronic kidney disease; N18.3 Chronic kidney disease, stage 3 (moderate); Z86.73 Personal history of transient ischemic attack (TIA), and cerebral infarction without residual deficits; I25.5 Ischemic cardiomyopathy; Z95.1 Presence of aortocoronary bypass graft; Z95.5 Presence of coronary angioplasty implant and graft; I44.7 Left bundle-branch block, unspecified; E78.5 Hyperlipidemia, unspecified; E55.9 Vitamin D deficiency, unspecified; E11.40 Type 2 diabetes mellitus with diabetic neuropathy, unspecified; Z87.891 Personal history of nicotine dependence
CPT/HCPCS: 71020; 78452; 80048; 80053; 80069; 81001; 82962; 83735; 84443; 84484; 85025; 85610; 85730; 93005; 93017; 94640; 97161-GP; A9270-GY; A9502; C8924; J0153; Q9957